=== PATIENT | male | born 1925 | race Caucasian/White ===

== ENCOUNTER 2016-08-26 09:37 | Outpatient (CLI) | payer MEDICARE, MEDICAID ==
[2016-08-26 18:06] LABS: ALBUMIN/GLOBULIN RATIO 0.7 (1.0-2.2); BILIRUBIN,TOTAL 0.7 mg/dL (0.2-1.0); CALCIUM 10.3 mg/dL (8.5-10.3); TOTAL PROTEIN 7.4 g/dL (6.7-8.2)
== END 2016-08-26 09:38 | disposition home or self-care (01) ==
LOC: LAB.R 09:37
DX: Z13.0 Encounter for screening for diseases of the blood and blood-forming organs and certain disorders involving the immune mechanism (principal)
CPT/HCPCS: 80053

== ENCOUNTER 2017-05-03 11:10 | Outpatient (CLI) | payer MEDICARE, MEDICAID ==
--- NOTE | 2017-05-03 14:20 | CONSULTATION NOTE ---
Palliative Care Consultation - Referral Referring Provider: Dr Buck Jose Time of Visit: 05/03/17 11:10-11:35 Referral setting: Longterm Facility (Health system) - Information Sources Records reviewed: RN notes reviewed, Previous records reviewed History/Review of Systems obtained from: Patient, Nursing Exam limitations: Clinical condition (Dementia, inappropriate sexual behavior) - History of Present Illness Brief History of Present Illness: Thank you, Dr Jose, for asking the palliative care consult service to be involved in the care of your patient. I am asked to provide support regarding weight loss, recent decline in functional status, increased agitation, symptom management, and goals of care. This is an 89-year-old man with dementia with persistent sexually inappropriate behaviors, depression with psychotic symptoms, HTN, and urinary retention. He has very little of other medical history, with one note from the ED stating he has a history of Parkinsons. I was unable to confirm this diagnosis. I was unable to conduct a meaningful review of symptoms due to his persistent and relentless sexually inappropriate behavior, including persistent vulgarities ("You want to F.... me, I know you do" "Are you , are you , you aren't ," "get in bed with me, that's all I want," "I need a woman to f me," "five minutes and I'll be a brand new man...."). Nursing reports this is his baseline behavior, along with inappropriate "grabbing." The other persistent theme is that he is giving away a million dollars. With some luck, perhaps that will be the theme of my next visit. The patient is quite hard of hearing, and also has vision impairment. He is under court-appointed guardianship, due to APS and other issues revolving around his family. His also has dementia and lives in an adult family home in [place]. Taylor, the guardian, reports that in the past, a family member, his son or brother, has taken him to visit the patient's , Soni, who no longer recognizes him. In March 2016 he was on Sertraline (25mg daily), Seroquel (25mg daily) and rivaroxaban (10mg daily), but is no longer on these medications. The only psych medication he is currently on is mirtazapine 7.5mg daily for depression and as an appetite stimulant. Medical/Surgical History - Past Medical History Cardiovascular: reports: Hypertension Neuro: reports: Dementia, Peripheral neuropathy Psych: reports: Other (Persistent sexually inappropriate behavior) MRSA Hx?: No - Substance History Dependence: Experiences withdrawal or developed tolerances: NONE Tobacco Details: Other (Former smoker) Social History - Living Situation Living arrangement: [facility] ([facility]) Living Situation: With caregiver(s) Support System: Patient and his , Soni, are , due to patient's behaviors. She is in an adult family home in [place] and does not recognize him. Son Brandon Caal lives in the area, son Monico Caal lives in [place], near [place], and brother Rush lives in [place] and visits the patient. The patient is under court-appointed guardianship [facility], phone [phone], fax [phone], contact is Taylor. Medications/Allergies - Medications Home Medications: Ambulatory Orders Medication Instructions Recorded Confirmed amLODIPine [Norvasc] 5 mg PO DAILY 08/12/15 05/03/17 Bethanechol Chloride 20 mg PO TID 03/20/16 05/03/17 Tamsulosin [Flomax] 0.8 mg PO DAILY 03/20/16 05/03/17 Acetaminophen 650 mg PO Q4H PRN 05/03/17 05/03/17 Mirtazapine 7.5 mg PO DAILY 05/03/17 05/03/17 Ondansetron [Ondansetron Odt] 4 mg PO Q8H PRN 05/03/17 05/03/17 Triamcinolone 0.1% Cream [Kenalog 1 ea TOP Q12H PRN 05/03/17 05/03/17 0.1% Cream] - Allergies Allergies/Adverse Reactions: Allergies Allergy/AdvReac Type Severity Reaction Status Date / Time No Known Drug Allergies Allergy Verified 08/12/15 15:00 Review of Systems - Constitutional Constitutional: reports: Fatigue, Poor appetite, Weight loss (129 lbs 05/03/17. 130.4 lbs on 04/17/17. 139.6 lbs on 10/14/16. 151.2 lbs 03/22/16. 160 lbs at time of admission on 08/16/15.) - Ears, Nose & Throat Ears, Nose & Throat: reports: Hearing loss, Dental decay (poor dentition) - Gastrointestinal Gastrointestinal: denies: Constipation, Vomiting - Genitourinary Genitourinary: denies: Incontinence (occasionally has wet briefs) - Musculoskeletal Musculoskeletal: reports: Assistive devices (walker), Other (does not complain of pain) - Neurological Neurological: reports: General weakness, Memory problems, Other - Psychiatric Psychiatric: reports: Delusions, Behavior disturbances (sexually inappropriate behavior) - Other Findings Other Findings: Unable to obtain a complete review of systems due to dementia and perseveration about sex. Physical Exam - Vital Signs Temperature: 98.3 F Pulse Rate: 56 O2 Saturation: 95 Blood Pressure: 118/66 - Physical Exam General Appearance: positive: No acute distress Eyes Bilateral: positive: No scleral icterus, Other (watering eyes). negative: Conjunctivae nml (w) ENT: positive: Dry mucous membranes, Other (poor dentition, missing teech) Neck: positive: No JVD, Trachea midline Cardiovascular: positive: No murmur, No gallop Palliative Care - POLST Patient has POLST: Yes POLST Status: DNR, Comfort Measures Pain: No pain Anorexia: Moderate (4-6), Severe (7-10), Weight loss (130 lbs, 9% decrease since 11/2016.) - Palliative Care Discussion: I was unable to contact any of the family members. The guardian tells me that she too has difficulty contacting them. The telephone number for rosalee Marc is no longer in service. The number for Rush, the patient's brother, rings through. I left a message with rosalee Taylor, and have not heard back. My intent was to gather family history and further information on the patient, but the guardian reports that the family is not particularly knowledgeable about the patient. Nursing notes reveal he has decreased interest in activities and ADLs, along with decreased mobility, and difficulty in staying upright. He is still able to feed himself, and does eat high calorie shakes mixed with hot cocoa at every meal. He also has mirtzapine for appetite stimulant. However, he continues to lose weight. He has no pressure wounds or skin breakdown. In speaking with the guardian, the patient's POLST is DNR and comfort care, and Hospice would be in alignment with the goals of care stated on POLST, so it would be appropriate to transition him to Hospice when he meets medical criteria. Impression and Recommendations - Palliative Care Impression: This is an 89-year-old man with dementia with persistent sexually inappropriate behaviors, depression with psychotic symptoms, HTN, and urinary retention. He has very little of other medical history, possibly a history of Parkinsons that I was unable to confirm. He has had general decline and a significant weight loss since his original admission to [facility]. He currently weight 129 lbs, from 160 lbs at admission 08/16/15. He is under court-appointed guardianship and the guardian agrees with transitioning him to Hospice when he meets criteria. Recommendations/Counseling Done: Weight loss: Steady, gradual decline. Current weight is 129 lbs; he was 160 lbs at admission in August 2015. He currently feeds himself, is given high calorie shakes with hot cocoa at each meal, and takes mirtazapine 7.5mg for appetite stimulant. General weakness: Still ambulatory with a walker, but less than previously. Shows decreased interest in activities and ADLs and has trouble staying upright. Depression with psychotic features: Severely inappropriate sexual behaviors (ISB ), or delusional thinking (millions of dollars to give away). Currently on mirtazapine low dose for appetite stimulant. He was previously on sertraline and seroquel, no records of why these were discontinued. Consider starting citalopram with the intent of ameliorating the obsessive sexually inappropriate behavior. Several case studies of using SSRIs to improve ISB have indicated that the ISB tend to persist. Advanced care planning: POLST is in place: comfort care and DNR. Family is not involved in decisions of care; patient is under court guardianship and the guardian is supportive of transition to Hospice when appropriate and he meets medical criteria. Follow up in 1-2 weeks to monitor functional status and weight loss. Time Spent: 30 minutes were spent with more than 50% of the time spent on counseling, education, and coordination of care.
== END 2017-05-03 11:11 | disposition home or self-care (01) ==
LOC: PC 11:10
PROVIDERS: ATTEND Nurse Practitioner
DX: Z51.5 Encounter for palliative care (principal); F03.91 Unspecified dementia, unspecified severity, with behavioral disturbance; F91.8 Other conduct disorders; I10 Essential (primary) hypertension; R33.9 Retention of urine, unspecified; R63.4 Abnormal weight loss; F32.3 Major depressive disorder, single episode, severe with psychotic features; G62.9 Polyneuropathy, unspecified; Z66 Do not resuscitate; Z79.899 Other long term (current) drug therapy
CPT/HCPCS: 99309

== ENCOUNTER 2017-05-12 08:00 | Outpatient (CLI) | payer MEDICARE, MEDICAID ==
[2017-05-13 00:24] LABS: BASOPHILS % (AUTO) 0.6 %; EOSINOPHILS # (AUTO) 0.2 10^3/uL (0.0-0.7); EOSINOPHILS % (AUTO) 4.1 %; HGB - HEMOGLOBIN 12.2 g/dL (14.0-18.0); LYMPHOCYTES # (AUTO) 1.8 10^3/uL (1.5-3.5); LYMPHOCYTES % (AUTO) 31.4 %; MEAN CORPUSCULAR HEMOGLOBIN 32.8 pg (27.0-31.0); MEAN CORPUSCULAR HGB CONC 34.1 g/dL (32.0-36.0); MEAN CORPUSCULAR VOLUME 96.2 fL (80.0-94.0); MEAN PLATELET VOLUME 9.3 fL (7.4-11.4); MONOCYTES # (AUTO) 0.5 10^3/uL (0.0-1.0); MONOCYTES % (AUTO) 9.4 %; NEUTROPHILS # (AUTO) 3.1 10^3/uL (1.5-6.6); NEUTROPHILS % (AUTO) 54.5 %; PLT - PLATELET COUNT 158 10^3/uL (130-450); RED BLOOD COUNT 3.72 10^6/uL (4.70-6.10); RED CELL DISTRIBUTION WIDTH 14.7 % (12.0-15.0); WHITE BLOOD COUNT 5.8 x10^3/uL (4.8-10.8)
[2017-05-13 00:25] LABS: ALBUMIN 2.9 g/dL (3.2-5.5); ALBUMIN/GLOBULIN RATIO 0.7 (1.0-2.2); BILIRUBIN,TOTAL 1.1 mg/dL (0.2-1.0); CALCIUM 10.1 mg/dL (8.5-10.3); CREATININE 0.9 mg/dL (0.6-1.2); TOTAL PROTEIN 6.8 g/dL (6.7-8.2)
== END 2017-05-12 08:01 ==
LOC: LAB.R 08:00
DX: F03.91 Unspecified dementia, unspecified severity, with behavioral disturbance (principal); F33.3 Major depressive disorder, recurrent, severe with psychotic symptoms
CPT/HCPCS: 80053; 85025